=== PATIENT | male | born 1990 | race Caucasian/White ===

== ENCOUNTER → 2021-10-27 | Outpatient (CLI) | payer BC ==
--- NOTE | 2021-10-27 15:18 | P.SLEEP ---
History of Present Illness DATE: 10/27/2021 CONSULTATION/NEW PATIENT EVALUATION HISTORY OF PRESENT ILLNESS/SLEEP-WAKE EVALUATION: 30year old gentleman had been evaluated in the sleep center for possible obstructive sleep apnea hypopnea syndrome. SLEEP SCHEDULE: Usually sleep schedule on [id number] PM to 7:30 AM], during days of from 12 AM until 8:30 AM]. FALLING ASLEEP: Patient has problems with falling asleep, although no TV in bedroom]. DURING SLEEP:Usually she sleeps on the back EnSite position. According to his he has very loud snoring and witnessed episodes of sleep apneas. Patient wakes up from sleep with choking and gasping for air. Positive history of restless leg symptoms] .No history of hypnogogical hallucinations, sleep par alysis, or cataplexy.Significant amount of kicking during the sleep and sometimes patient moves his legs up towards chest. DURING THE DAY/WAKE STATE: In the morning patient wake up tired has episodes of irritability and anxiety]. [place] sleepiness scale i increased to 12] Usually patient doesn't take naps]. PAST MEDICAL HISTORY: Possible depression]. PAST SURGICAL HISTORY: None]. MEDICATIONS: Celexa]. SOCIAL HISTORY: Negative for smoking] smoking, alcohol consumption occasional. FAMILY HISTORY:Hypertension, hyperlipidemia]. REVIEW OF SYSTEMS:Snoring, multiple awakenings from sleep]. No fevers. No double vision. No recent chest pain. No shortness of breath. No abdominal pain. No bleeding episodes. No blood in urine. No seizure episodes. PHYSICAL EXAMINATION: GENERAL: A pleasant patient without any distress. VITAL SIGNS: B 133/94] , HR102] , R 16] , weigh 217] pounds, heigh 5 ]venice 5 ]inches, body mass inde 36.1] . HEENT: PERRLA, EOMI. Evaluation of oropharynx showed tongue protrudes midline, normal position of soft palate Mallampat to]. NECK: Supple. No JVD. Thyroid is not palpable. 16-1/2] inches in circumference. LUNGS: Clear to percussion and to auscultation. Good air exchange. No wheezing or rhonchi. HEART: S1, S2 regular. No murmurs, gallops or rubs. ABDOMEN: Soft and nontender. Bowel sounds are present. No organomegaly appreciated. EXTREMITIES: No clubbing or cyanosis. [employer] WORK[employer]: Awake, alert, and oriented x3. Cranial nerves 2 to 7 intact. There is no fasciculation or atrophy noted. No focal deficits observed. ASSESSMENT: 1. Loud snoring, witnessed episodes of sleep apneas, multiple awakenings from sleep up to 4 times with 2 episodes of nocturia, sleepiness [place] Sleepiness Scale is 12. Obstructive sleep apnea hypopnea syndrome]. 2. Possible depression]. 3 significant amount of movements during the night. Periodic limb movements]. 4. Mild obesity]. PLAN: 1. Home sleep apnea test for evaluation of patient's breathing during sleep. 2. CPAP/BiPAP titration if sleep study confirms obstructive sleep apnea- hypopnea syndrome. 3. Preferable position during sleep on the side. 4. No driving if patient feels any sleepiness. Patient is aware of civil and criminal liability for unsafe driving. 5. Sleep hygiene with regular sleep time for at least 7.5-8 hours. 6. Watching weight. Thank you very much for referring this patient for consultation. Sincerely, Solitario Rolon MD, PhD, FAASM. Diplomat of [place] [employer], Sleep Medicine Board by [place] [employer] [place] [employer] [facility] [place] [facility] Note - Sleep Note Sleep Note: Temperature: Pulse Rate: Respiratory Rate: Blood Pressure: SpO2: Height: Weight: BMI: Neck Circumference:
== END ==
LOC: SLEEP 14:45
PROVIDERS: ATTEND Internal Medicine
DX: G47.33 Obstructive sleep apnea (adult) (pediatric) (principal); G47.61 Periodic limb movement disorder; E66.9 Obesity, unspecified; Z68.36 Body mass index [BMI] 36.0-36.9, adult
CPT/HCPCS: 99202